=== PATIENT | male | born 1995 | race Caucasian/White ===

== ENCOUNTER 2017-12-03 13:54 | Emergency (ER) | payer SELFPAY ==
[~2017-12-03] VITALS: Ht 170.2 cm; Wt 66.8 kg
[2017-12-03 15:06] VITALS: BP 141/69; PULSE 95; TEMP 99.4
== END 2017-12-03 15:17 | disposition home or self-care (01) ==
LOC: COL.ER 13:54
DX: S61.217A Laceration without foreign body of left little finger without damage to nail, initial encounter (principal); W26.8XXA Contact with other sharp object(s), not elsewhere classified, initial encounter; Y92.89 Other specified places as the place of occurrence of the external cause; Y99.0 Civilian activity done for income or pay